=== PATIENT | female | born 1975 | race Caucasian/White ===

== ENCOUNTER 2018-03-08 08:23 | Inpatient (IN) | payer MEDICAID ==
[~2018-03-08 08:23] MED LIST: EPHEDrine SULFATE 50 MG/5 ML SYG
[2018-03-08 09:44] LABS: ADD MAN DIFF? NO
[2018-03-08] MEDS ORDERED: MISOPROSTOL 200 MCG TAB PR ×2 (10:00→12:30)
[2018-03-08] MEDS ORDERED: CARBOPROST 250 MCG INJ IM ×2 (10:00→12:30)
[2018-03-08] MEDS ORDERED: METHYLERGONOVINE 0.2 MG INJ IM ×2 (10:00→12:30)
[2018-03-08] MEDS ORDERED: OXYTOCIN 30 UNITS/LR 500 ML IV ×3 (10:00→13:30)
[2018-03-08] MEDS ORDERED: CEFAZOLIN 2 GM/50 ML (PMX) 50 ML IV ×2 (10:00→12:30)
[2018-03-08] MEDS: LACTATED RINGER'S 1,000 ML IV ×2 (10:02→18:58)
[2018-03-08 10:03] LABS: WHITE BLOOD COUNT 5.4 10^3/ul (4.8-10.8)
[2018-03-08 10:03] LABS: BASOPHILS % 0.2 % (0.0-2.0); EOSINOPHILS # 0.1 10^3/ul (0.0-0.5); EOSINOPHILS % 0.9 % (0.0-7.0); HEMATOCRIT 32.3 % (37.0-47.0); HEMOGLOBIN 10.8 g/dl (12.0-16.0); LYMPHOCYTES # 1.4 10^3/ul (0.8-2.9); LYMPHOCYTES % 25.3 % (15.0-51.0); MEAN CORPUSCULAR HEMOGLOBIN 32.8 pg (29.0-33.0); MEAN CORPUSCULAR HGB CONC 33.4 g/dl (32.0-37.0); MEAN CORPUSCULAR VOLUME 98.2 fl (82.0-101.0); MEAN PLATELET VOLUME 10.8 fl (7.4-10.4); MONOCYTE # 0.6 10^3/ul (0.3-0.9); MONOCYTES % 10.8 % (0.0-11.0); NEUTROPHIL # 3.4 10^3/ul (1.6-7.5); NEUTROPHILS % 62.2 % (39.0-77.0); PLATELET COUNT 229 10^3/UL (140-415); RED BLOOD COUNT 3.29 10^6/ul (4.20-5.40); RED CELL DISTRIBUTION WIDTH 12.7 % (11.5-14.5)
[2018-03-08] MEDS ORDERED: CITRIC ACID/SODIUM CITRATE 15 ML CUP (10:11)
[2018-03-08] MEDS ORDERED: METOCLOPRAMIDE 10 MG INJ (10:12)
[2018-03-08] MEDS ORDERED: FAMOTIDINE 20 MG INJ (10:12)
[2018-03-08 10:19] LABS: INR 0.94; PROTIME 12.7 Sec (11.9-14.9)
[2018-03-08 10:20] LABS: PARTIAL THROMBOPLASTIN TIME 28.5 Sec (25.0-35.0)
[2018-03-08] MEDS: CITRIC ACID/SODIUM CITRATE 15 ML CUP PO (10:24)
[2018-03-08] MEDS: METOCLOPRAMIDE 10 MG INJ IV (10:25)
[2018-03-08] MEDS: FAMOTIDINE 20 MG INJ IV (10:25)
[2018-03-08 10:56] LABS: AMPHETAMINE/METHAMPHETAMINE Negative (NEGATIVE); BARBITURATES Negative (NEGATIVE); BENZODIAZEPINES Negative (NEGATIVE); CANNABINOIDS Negative (NEGATIVE); COCAINE Negative (NEGATIVE); OPIATES Negative (NEGATIVE)
[2018-03-08] MEDS ORDERED: BUPIVACAINE 0.75%/DEXT (SPINAL) 2 ML INJ (11:07)
[2018-03-08] MEDS ORDERED: morphine SULFATE/PF (10 MG/10 ML) INJ (11:07)
[2018-03-08 11:18] LABS: HEPATITIS B SURFACE ANTIGEN NEGATIVE (NEGATIVE)
[2018-03-08] MEDS ORDERED: EPHEDrine 25 MG/5 ML SYG ×2 (11:19→12:01)
[2018-03-08] MEDS ORDERED: ONDANSETRON 4 MG INJ (11:44)
[2018-03-08] MEDS ORDERED: MEPERIDINE 25 MG INJ IV (12:00)
[2018-03-08] MEDS ORDERED: DIPHENHYDRAMINE 50 MG INJ IV ×2 (12:00→14:00)
[2018-03-08] MEDS ORDERED: FENTAnyl 50 MCG/ML VIAL IV ×3 (12:00)
[2018-03-08] MEDS ORDERED: PROCHLORPERAZINE 10 MG INJ IV (12:00)
[2018-03-08] MEDS ORDERED: KETOROLAC 30 MG INJ IV (12:00)
[2018-03-08] MEDS ORDERED: HYDROmorphONE 1 MG/5 ML IV SYRINGE IV ×3 (12:00)
[2018-03-08] MEDS ORDERED: ONDANSETRON 4 MG INJ IV ×2 (12:00→14:00)
[2018-03-08] MEDS: OXYTOCIN 30 UNITS/LR 500 ML IV ×2 (12:17→13:44)
[2018-03-08] MEDS ORDERED: LANOLIN 7 GM TUBE TOP (12:30)
[2018-03-08] MEDS ORDERED: NALOXONE (0.4 MG/ML) INJ IV (14:00)
[2018-03-08] MEDS ORDERED: ZOLPIDEM 5 MG TAB PO (14:00)
[2018-03-08] MEDS ORDERED: HYDROmorphONE 0.5 MG/0.5 ML SYG IV ×2 (14:00)
[2018-03-08] MEDS: KETOROLAC 30 MG INJ IV (16:33)
[2018-03-08] MEDS: IBUPROFEN 600 MG TAB PO (18:00)
[2018-03-08 19:53] LABS: RAPID PLASMA REAGIN NONREACTIVE (NR)
[2018-03-08] MEDS: SENNA/DOCUSATE NA (8.6MG/50MG) TAB PO (21:13)
[2018-03-08] MEDS: CEFAZOLIN 2 GM/50 ML (PMX) 50 ML IV (21:14)
[2018-03-09] MEDS: LACTATED RINGER'S 1,000 ML IV ×2 (02:29→10:30)
[2018-03-09] MEDS: KETOROLAC 30 MG INJ IV ×2 (05:09→11:41)
[2018-03-09] MEDS: CEFAZOLIN 2 GM/50 ML (PMX) 50 ML IV ×2 (05:09→11:42)
[2018-03-09] MEDS: IBUPROFEN 600 MG TAB PO ×4 (06:00→18:04)
[2018-03-09 09:14] LABS: ADD MAN DIFF? NO
[2018-03-09 09:23] LABS: WHITE BLOOD COUNT 10.8 10^3/ul (4.8-10.8)
[2018-03-09 09:23] LABS: BASOPHILS % 0.1 % (0.0-2.0); EOSINOPHILS % 0.1 % (0.0-7.0); HEMATOCRIT 28.9 % (37.0-47.0); HEMOGLOBIN 9.6 g/dl (12.0-16.0); LYMPHOCYTES # 1.4 10^3/ul (0.8-2.9); LYMPHOCYTES % 13.2 % (15.0-51.0); MEAN CORPUSCULAR HEMOGLOBIN 32.5 pg (29.0-33.0); MEAN CORPUSCULAR HGB CONC 33.2 g/dl (32.0-37.0); MEAN PLATELET VOLUME 10.4 fl (7.4-10.4); MONOCYTE # 0.9 10^3/ul (0.3-0.9); MONOCYTES % 8.5 % (0.0-11.0); NEUTROPHIL # 8.4 10^3/ul (1.6-7.5); NEUTROPHILS % 77.7 % (39.0-77.0); PLATELET COUNT 195 10^3/UL (140-415); RED BLOOD COUNT 2.95 10^6/ul (4.20-5.40); RED CELL DISTRIBUTION WIDTH 12.9 % (11.5-14.5)
[2018-03-09] MEDS: SENNA/DOCUSATE NA (8.6MG/50MG) TAB PO ×2 (09:38→21:54)
[2018-03-09] MEDS: OXYCODONE/ACETAMINOPHEN (5/325) TAB PO (22:44)
[2018-03-10] MEDS: IBUPROFEN 600 MG TAB PO ×5 (05:37→23:47)
[2018-03-10] MEDS: SENNA/DOCUSATE NA (8.6MG/50MG) TAB PO ×2 (08:30→23:47)
[2018-03-10] MEDS: OXYCODONE/ACETAMINOPHEN (5/325) TAB PO (08:30)
[2018-03-11] MEDS: IBUPROFEN 600 MG TAB PO ×2 (05:40→12:28)
[2018-03-11] MEDS: SENNA/DOCUSATE NA (8.6MG/50MG) TAB PO (09:29)
[2018-03-11] MEDS: OXYCODONE/ACETAMINOPHEN (5/325) TAB PO (09:30)
== END 2018-03-11 14:40 | disposition home or self-care (01) | DRG 766 ==
LOC: L-D 08:23 → PP1 15:20
PROVIDERS: Obstetrics & Gynecology
PROC: 10D00Z1 Extraction of Products of Conception, Low, Open Approach (ICD-10-PCS; principal; 2018-03-08 10:30)
PROC: 0UB70ZZ Excision of Bilateral Fallopian Tubes, Open Approach (ICD-10-PCS; 2018-03-08 10:30)
PROC: 4A1HXCZ Monitoring of Products of Conception, Cardiac Rate, External Approach (ICD-10-PCS; 2018-03-08 10:30)
DX: O32.1XX0 Maternal care for breech presentation, not applicable or unspecified (principal); Z3A.39 39 weeks gestation of pregnancy; Z37.0 Single live birth; Z30.2 Encounter for sterilization
CPT/HCPCS: 80307; 85025; 85610; 85730; 86592; 86850; 86900; 86901; 87340; 88302; 99464